=== PATIENT | male | born 1930 | race Caucasian/White ===

== ENCOUNTER 2018-03-21 08:40 | Outpatient (CLI) | payer MEDICARE, OTHER ==
[2018-03-21 13:36] LABS: ALBUMIN 3.7 g/dL (3.2-5.5); ALBUMIN/GLOBULIN RATIO 1.2 (1.0-2.2); ALKALINE PHOSPHATASE 65 IU/L (42-121); ALT ALANINE AMINOTRANSFERASE 20 IU/L (10-60); AST ASPARTATE AMINOTRANSFERASE 20 IU/L (10-42); BILIRUBIN,TOTAL 0.8 mg/dL (0.2-1.0); BUN - BLOOD UREA NITROGEN 20 mg/dL (6-20); CALCIUM 8.8 mg/dL (8.5-10.3); CARBON DIOXIDE - CO2 27 mmol/L (21-32); CHLORIDE 104 mmol/L (101-111); CHOL/HDL RATIO 2.9 (<5.0); CHOLESTEROL 199 mg/dL; CREATININE 0.8 mg/dL (0.6-1.2); GFR - MDRD 91 (>89); GLUCOSE 183 mg/dL (70-100); HDL CHOLESTEROL 68 mg/dL; LDL CHOLESTEROL,CALCULATED 115 mg/dL; LDL/HDL RATIO 1.7 (<3.6); SODIUM 138 mmol/L (135-145); TOTAL PROTEIN 6.8 g/dL (6.7-8.2); VLDL CHOLESTEROL 16 mg/dL
[2018-03-21 16:24] LABS: HB2 TOTAL 15.6 g/dL; HEMOGLOBIN A1C 1.19 g/dL; HEMOGLOBIN A1C % 9.1 % (4.6-6.2)
== END 2018-03-21 08:41 | disposition home or self-care (01) ==
LOC: LAB.WCP 08:40
PROVIDERS: ATTEND Family Medicine
DX: I10 Essential (primary) hypertension (principal); E11.65 Type 2 diabetes mellitus with hyperglycemia; E78.5 Hyperlipidemia, unspecified
CPT/HCPCS: 36415; 80053; 80061; 82043; 83036; 83721

== ENCOUNTER 2018-07-19 08:00 | Outpatient (CLI) | payer MEDICARE, OTHER ==
[2018-07-19 19:01] LABS: CALCIUM 9.2 mg/dL (8.5-10.3); CREATININE 0.9 mg/dL (0.6-1.2)
[2018-07-19 19:20] LABS: HB2 TOTAL 17.3 g/dL; HEMOGLOBIN A1C 1.44 g/dL; HEMOGLOBIN A1C % 9.8 % (4.6-6.2)
== END 2018-07-19 23:59 | disposition home or self-care (01) ==
LOC: LAB.WCP 08:00
PROVIDERS: ATTEND Family Medicine
DX: E11.65 Type 2 diabetes mellitus with hyperglycemia (principal)
CPT/HCPCS: 36415; 80048; 82043; 83036

== ENCOUNTER 2018-09-06 08:00 | Outpatient (CLI) | payer MEDICARE, OTHER ==
[2018-09-06 12:24] LABS: BILIRUBIN,URINE NEGATIVE (NEGATIVE); UROBILINOGEN,URINE 0.2 (NORMAL) E.U./dL (NORMAL)
[2018-09-06 12:28] LABS: CLARITY,URINE BLOODY (CLEAR); OCCULT BLOOD,URINE LARGE (NEGATIVE)
[2018-09-06 12:29] LABS: BACTERIA,URINE Few /HPF (None Seen); RBC,URINE TNTC /HPF (0-5); SQUAMOUS EPITHELIAL CELL,UR NONE SEEN (<= Few)
== END 2018-09-06 23:59 | disposition home or self-care (01) ==
LOC: LAB.WCP 08:00
PROVIDERS: ATTEND Family Medicine
DX: R31.9 Hematuria, unspecified (principal)
CPT/HCPCS: 81001; 87086

== ENCOUNTER 2018-09-08 09:24 | Outpatient (CLI) | payer MEDICARE, OTHER ==
[2018-09-08 09:57] LABS: CREATININE 0.8 mg/dL (0.6-1.2)
[2018-09-08] MEDS ORDERED: IOVERSOL 320 100 ML VIAL IVP ONE ×2 (11:47→12:21)
--- NOTE | 2018-09-08 15:05 | CT Report ---
Reason: HEMATURIA UNSPECIFIED Procedure Date: 09/08/2018 Accession Number: [id number] / [id number] Procedure: CT - IVP CPT Code: FULL RESULT: EXAM: CT ABDOMEN AND PELVIS WITHOUT AND WITH CONTRAST (CT IVP) EXAM DATE: 09/08/2018 12:11 PM. CLINICAL HISTORY: Hematuria unspecified. COMPARISONS: None. TECHNIQUE: Routine helical imaging was performed through the kidneys, ureters and bladder in the precontrast, postcontrast and delayed phase. IV Contrast: 100 mL Optiray 320. Reconstructions: Coronal and sagittal. In accordance with CT protocol optimization, one or more of the following dose reduction techniques were utilized for this exam: automated exposure control, adjustment of mA and/or KV based on patient size, or use of iterative reconstructive technique. FINDINGS: Lung Bases: Extensive coronary calcifications. Right Kidney/Ureter: No stones, hydronephrosis, or masses. Left Kidney/Ureter: There is a nonobstructing 3 mm left renal calculus. No hydronephrosis, or masses. Other Solid Organs: The liver, spleen, pancreas, gallbladder, and adrenal glands are unremarkable.The bile ducts are unremarkable. Peritoneal Cavity/Bowel: Pancolonic diverticulosis without evidence of diverticulitis. Normal appendix. No free fluid, free air or adenopathy. No masses. Bowel loops are unremarkable. Pelvic Organs: The right posterior bladder in the region of the right UVJ demonstrates irregular soft tissue contour. Multiple bladder calculi are noted measuring up to 1 cm. Note is made of a small bladder diverticulum. The visualized pelvic organs are unremarkable. Vasculature: Extensive atherosclerosis. Bones: Normal. Other: None. IMPRESSION: Irregular bladder contour along the posterior right side near the right ureterovesicle junction in the setting of calculi, suspicious. Recommendation: Direct visualization. RADIA ADDENDUM: 09/08/2018 15:12 Cholelithiasis is also noted without evidence of cholecystitis.
== END 2018-09-08 09:25 | disposition home or self-care (01) ==
LOC: LAB 09:24 → DI 09:25
PROVIDERS: ATTEND Family Medicine
DX: N21.0 Calculus in bladder (principal); R31.9 Hematuria, unspecified
CPT/HCPCS: 36415; 74178; 82565; Q9967

== ENCOUNTER 2018-09-21 12:50 | Outpatient (CLI) | payer MEDICARE, OTHER ==
[2018-09-21 19:08] LABS: BILIRUBIN,URINE NEGATIVE (NEGATIVE); GLUCOSE, URINE (UA) 250 mg/dL (NEGATIVE); KETONES,URINE (UA) NEGATIVE (NEGATIVE); LEUKOCYTE ESTERASE, URINE TRACE (NEGATIVE); NITRITE,URINE NEGATIVE (NEGATIVE); OCCULT BLOOD,URINE NEGATIVE (NEGATIVE); PH,URINE 5.5 PH (5.0-7.5); PROTEIN,URINE NEGATIVE (NEGATIVE); UROBILINOGEN,URINE 0.2 (NORMAL) E.U./dL (NORMAL)
[2018-09-21 19:31] LABS: BACTERIA,URINE None Seen /HPF (None Seen); CLARITY,URINE CLEAR (CLEAR); RBC,URINE 0-5 /HPF (0-5); SQUAMOUS EPITHELIAL CELL,UR RARE Squamous (<= Few); YEAST,URINE PRESENT
== END 2018-09-21 23:59 | disposition home or self-care (01) ==
LOC: LAB.WCP 12:50
PROVIDERS: ATTEND Family Medicine
DX: R31.9 Hematuria, unspecified (principal)
CPT/HCPCS: 81001; 87086